=== PATIENT | male | born 2000 | race Native Hawaiian/Other Pacific Islander ===

== ENCOUNTER 2025-05-14 17:39 | Emergency (ER) | payer SELFPAY ==
--- OUTSIDE RECORDS SUMMARY | 2025-05-13 17:42 | XMS_ITS | Encounter Summary ---
Author Organization [facility] Address [address] [facility] [address] [place] [phone] Phone Care Team Providers Care Marketing Teacher Name Role Phone Pcp, Unknown Primary Care Provider Unavailabl e Encounter Details Date Type Department Care Team ([facility] st Contact Info) Description 05/13/2025 5:42 PM EDT - 05/13/2025 8:01 PM EDT Emergency [facility] [address] [place] [address] Discharge Disposition: Left Without Being Seen Social History Tobacco Use Types Packs/Day Years Used Date Smoking Tobacco: Never Smokeless Tobacco: Never Alcohol Use Standard Drinks/Week Comments Never 0 (1 standard drink = 0.6 oz pur e alcohol) Education Answer Date Recorded Are you interested in more education? Not on yesica e 11/29/2022 Are you concerned about learning? Not on file 11/29/2022 No 11/29/2022 No 11/29/2022 Digital Access Answer Date Recorded No 12/27/2022 No 12/27/2022 No 12/27/2022 Reliable internet access at home? Not on file 12/27/2022 Device with a working camera? Not on file Intimate Partner Violence Answer Date R ecorded Are you denied basic needs s uch as food, clothing, or medical care? No 02/25/2024 In the past 12 months have y ou been in a relationship with a person who hurts, threatens, or tries to control you? No 02/25/2024 Are you denied basic needs s uch as food, clothing, or medical care? No 02/25/2024 In the past 12 months have y ou been in a relationship with a person who hurts, threatens, or tries to control you? No 02/25/2024 Sex and Gender Information Value Date Recorded Sex Assigned at Male 02/09/2019 8:02 PM EDT Legal Sex Male 8:46 PM EDT Gender Identity Male 02/09/2019 8:02 PM EDT Sexual Orientation Straight 12/17/2021 10 :26 PM EDT documented as of this encounter Medications at Time of Discharge cyclobenzaprine (FLEXERIL) 5 MG tablet 5-10 mg every 6-8 hours as needed for skeletal muscle relaxation/mus zeina spasm 20 tablet 02/25/2024 documented as of this encounter Plan of Treatment Not on file documented as of this encounter Visit Diagnoses Not on filedocumented in this encounter Care Teams Marketing Teacher Relationship Specialty Start Date End Date Pcp, Unknown PCP - General 02/25/24 documented as of this encounter Additional Source Comments The information contained in this document represents components of the legal health record. It is not the complete legal health record.[facility]
--- NOTE | ~2025-05-14 | XR_ITS ---
CLINICAL HISTORY: constipation 1 view abdomen Comparison: None provided Findings: No pneumoperitoneum or pneumatosis. No abnormal calcifications. Ghto-[id number] colonic stool burden. No acute fractures. IMPRESSION: [id number] colonic stool burden. This document has been electronically signed by: Pina Heredia MD on 05/14/2025 19:15:26
--- NOTE | ~2025-05-14 | CT_ITS ---
CLINICAL HISTORY: rlq pain CT abdomen and pelvis with contrast Comparison: None provided Findings: LIMITED CHEST: Lung bases are clear. LIVER: No focal liver lesion. Mild diffuse hypoattenuation suggesting steatosis. BILIARY: No gallbladder wall thickening, radiopaque stone, or ductal dilatation. PANCREAS: No mass or ductal dilatation. SPLEEN: No splenomegaly. KIDNEYS: No hydronephrosis or radiopaque stone. Small hypoattenuating lesions, too small to characterize however may represent cysts. ADRENALS: No nodule. VASCULAR: No aneurysm. RETROPERITONEUM: No lymphadenopathy or mass. BOWEL/MESENTERY: No evidence of obstruction. No free fluid or air. Normal appendix. ABDOMINAL WALL: No mass or significant abnormality. URINARY BLADDER: No focal wall thickening. PELVIC NODES: No pelvic lymphadenopathy. PELVIC ORGANS: Normal for age. BONES: No acute fracture. OTHER: Negative. IMPRESSION: No acute findings. Normal appendix. This document has been electronically signed by: Pina Heredia MD on 05/14/2025 21:49:40
[2025-05-14 17:45] VITALS: BP 130/86; PULSE 86; RESP 18; TEMP 36.3; O2SAT 99; BMI 28.0
--- NOTE | 2025-05-14 17:45 | ED.ABDPAIN ---
HPI - Abdominal Pain General Chief Complaint: Abdominal Pain Stated Complaint: lower abd pain Time Seen by Provider: 05/14/25 20:01 Source: patient Mode of arrival: ambulatory Limitations: no limitations History of Present Illness ED Provider: DR. Mackay HPI narrative: 24-year-old male otherwise healthy came in for evaluation of right lower quadrant pain that is started 2 days ago while having sexual intercourse with his pain started very severe confined to the right lower quadrant area felt like a muscle spasm that stop the patient from his activity, patient since then has been constant and localized to the right lower quadrant area, no nausea, no vomiting, no anorexia, no testicular pain, no flank pain, no hematuria, no dysuria, no frequency urination, no urethral discharge, no history of STDs, no risk for STD. Patient has been having constipation for the last 2 days, +passing flatus, no no history of intra-abdominal surgery. Related Data Previous Rx's ?Medication ?Instructions ?Recorded methocarbamol 500 mg tablet 1,000 mg (2 x 500 mg) PO QID #20 05/14/25 tabs Allergies Allergy/AdvReac Type Severity Reaction Status Date / Time No Known Allergies Allergy Verified 05/14/25 17:48 Review of Systems Review of Systems All other systems are reviewed and are negative Constitutional: Reports as per HPI and Reports no additional constitutional complaints Eyes: Reports as per HPI and Reports no additional eye complaints Reports system reviewed and no additional complaints, except as documented Cardiovascular: Reports as per HPI and Reports no additional cardiovascular complaints Respiratory: Reports as per HPI and Reports no additional respiratory complaints Gastrointestinal: Reports as per HPI and Reports no additional gastrointestinal complaints Genitourinary: Reports no additional female genitourinary complaints Musculoskeletal: Reports no additional musculoskeletal complaints Skin/Breast: Reports system reviewed and no additional complaints, except as docu Psychiatric: Reports no additional psychiatric complaints Endocrine: Reports no additional endocrine complaints Hematologic/Lymphatic: Reports no additional hematologic/lymphatic complaints Allergic/Immunologic: Reports no additional allergic/immunologic complaints Reports system reviewed and no additional complaints, except as documented and Reports Abnormal speech present [facility] Social History Social History Smoked in Last 30 Days: No Use of substances other than those prescribed or required for medical reasons: No Advance Directives: No Advance Directives Information Provided: Yes Do you have a plan to hurt others: No Plan Physical Exam ED Vital Signs: Vital Signs - 24 hr 05/14/25 17:45 05/14/25 18:26 05/14/25 20:20 Temperature 97.3 F 98.6 F 98.4 F Pulse Rate 86 90 88 Respiratory Rate 18 16 18 Blood Pressure 130/86 115/74 120/69 Pulse Oximetry 99 97 98 Oxygen Delivery Method Room Air Nasal Cannula Room Air BMI result Body Mass Index 28.0 Vital signs have been reviewed and appear to be correct. Blood pressure elevated. Heart rate normal. Respiratory rate normal. Temperature normal. Oxygen saturation normal. Appearance: Alert. Oriented X3. No acute distress. Head: Normal external exam. Normocephalic. Atraumatic. No [place] signs noted. No raccoon eyes noted Eyes: PERRLA. EOMI. Conjunctiva and sclera normal. Eyelids normal. ENT: TM's Normal. Pharynx normal. Uvula midline. Moist mucous membranes. No trismus noted. No drooling noted. No muffled voice noted. Neck: Normal inspection. Neck supple. FROM. No adenopathy. Thyroid Normal. No meningeal signs. No neck mass noted. CVS: Normal heart rate and rhythm. Heart sound normal. No murmurs noted. Pulses normal throughout. Respiratory: No respiratory distress. Painless inspiration. Breath sounds normal. No wheezes/rales/rhonchi noted. Chest nontender. No accessory muscle usage noted or decreased air movement noted. Abdomen: Right lower quadrant abdominal tenderness, no rebound tenderness, no guarding. Bowel sounds normal in all 4 quadrants. No distention noted. No organomegaly noted. No visible injury noted. exam: No testicular pain, no testicular swelling, +cremasteric reflex bilaterally, no testicular redness or hotness. Back: No CVA tenderness. Full range of motion noted. Skin: Skin warm and dry. Normal skin color. Normal skin turgor. No rashes/lesions/lacerations noted. Extremities: No lower extremity edema. Extremities exhibit normal range of motion. Extremities nontender. Neuro: Oriented X 3. Cranial nerve exam: II-XII are grossly intact No motor deficit. No sensory deficit. Reflexes normal. Course Course Course Narrative: This is a Rapid Medical Examination (RME) performed by Nelly Ramirez PA-C in triage. Full HPI, ROS, assessment and treatment plan per primary provider in the Main ED. Hx: 24 yo M here for eval of acute onset sharp RLQ pain x2 days. admits to constipation - small BM this morning, cannot recall BM before that. no N/V/D. normal appetite. no hx abd surgery. Plan: labs, UA Reevaluation(s) Reevaluation #1: 24-year-old male came in with right lower quadrant abdominal pain x2 days, no leukocytosis, UA showed no hematuria, chemistry within normal limits. Patient is awaiting for CT abdomen and pelvis with IV contrast to rule out acute appendicitis. Case signed out to Dr. Agudelo at the end of my shift. Time: 20:50 Medical Decision Making Differential Diagnosis Differential Diagnoses: The differential diagnosis associated with the presentation includes (Pancreatitis, colitis, diverticulitis, colitis, kidney stone, testicular torsion, acute appendicitis, UTI, electrolyte derangement, severe anemia.) Admission/Observation Consideration of admission/observation: Escalation of care including admission/observation considered Lab Data MDM Lab Attestation statement: I reviewed the patient's lab results. 05/14/25 18:23 05/14/25 18:23 Labs: Lab Results 05/14/25 05/14/25 Range/Units 18:23 18:32 WBC 9.8 (4.8-10.8) X10*3/uL RBC 5.29 (4.60-5.80) X10*6/uL Hgb 14.9 (14.0-18.0) g/dl Hct 44.0 (42.0-52.0) % MCV 83.2 (80.0-98.0) fL MCH 28.2 (27.0-33.0) pg MCHC 33.9 (31.0-36.0) g/dl RDW 12.7 (11.0-16.0) % Plt Count 367 (160-400) X10*3/uL MPV 10.4 (9.4-12.4) fL Immature Gran % (Auto) 0.3 (0.0-0.4) % Neut % (Auto) 58.1 (45-73) % Lymph % (Auto) 32.4 (20-40) % [place] % (Auto) 6.2 (2-11) % Eos % (Auto) 2.4 (0-4) % Baso % (Auto) 0.6 (0-2) % Lymph # (Auto) 3.2 (1.2-4.9) X10*3/uL [place] # (Auto) 0.6 (0.1-1.2) X10*3/uL Eos # (Auto) 0.2 (0.0-0.4) X10*3/uL Baso # (Auto) 0.1 (0.0-0.2) X10*3/uL Abs Immat Gran (auto) 0.03 (0.00-0.03) X10*3/uL Absolute Neuts (auto) 5.7 (2.0-8.3) x10*3/uL Absolute Nucleated RBC 0.000 (0.0-0.012) X10*3/uL Nucleated RBC % (auto) 0.0 (0.0-0.2) /100WBC Sodium 140 (135-145) mmol/L Potassium 3.3 (3.3-5.1) mmol/L Chloride 104 (96-108) mmol/L Carbon Dioxide 29 (22-29) mmol/L Anion Gap 10 L (12-20) BUN 12 (9-16) mg/dL Creatinine 0.96 (0.5-1.4) mg/dL Estim Creat Clear Calc 128.8 Estimated GFR > 60 Random Glucose 114 (60-115) mg/dL Calcium 9.4 (8.4-10.2) mg/dL Magnesium 2.0 (1.6-2.6) mg/dL Total Bilirubin 0.4 (0.0-1.0) mg/dL AST 28 (5-37) U/L ALT 41 H (0-40) U/L Alkaline Phosphatase 94 (39-117) U/L C-Reactive Protein 0.49 (< or = 0.50) mg/dL Total Protein 7.5 (6.5-8.0) g/dL Albumin 4.6 (3.5-5.0) g/dL Lipase 31 (8-78) U/L Urine Color Yellow Urine Appearance Clear Urine pH 6.0 (5.0-9.0) Ur Specific [place] >= 1.030 H (1.005-1.025) Urine Protein Negative (Neg-Trace) mg/dL Urine Glucose (UA) Negative (Negative) mg/dL Urine Ketones Trace (Negative) mg/dL Urine Blood Negative (Negative) Urine Nitrite Negative (Negative) Ur Leukocyte Esterase Negative (Negative) Medications Administered Discontinued Medications Generic Name Dose Route Start Last Admin Trade Name Franco PRN Reason Stop Dose Admin Acetaminophen 1,000 mg in 100 mls @ 400 mls/hr 05/14/25 20:08 05/14/25 20:39 Ofirmev IV 05/14/25 20:22 Infused ONCE ONE Infusion Iohexol 100 ml 05/14/25 20:32 05/14/25 20:32 Iohexol 350 Mg/Ml 100 Ml Infus..Btl IV 05/14/25 20:33 85 ml ONCE ONE Administration Discharge Plan Discharge Clinical Impression: Abdominal pain Patient Disposition: Home, Self-Care Instructions: Acute Abdominal Pain (ED) Additional Instructions: Your blood worka nd CT scan are reassuring. There is no evidence of appendicitis today. You may have strained a muscle in your abdominal wall which can be quite tender. Use muscle relaxers and anti-inflammatory pain medications to help with the pain. Do not take muscle relaxers if you are driving as these drugs can make you drowsy. Return to the emergency department with any new or worsening symptoms including: Worsening pain, fevers greater than 100?, inability to tolerate food or drink, any new symptom that concerns you. Call 911 with any medical emergency. Prescriptions: New methocarbamol 500 mg tablet 1,000 mg PO QID Qty: 20 0RF Print Language: Yakut
[2025-05-14 18:26] VITALS: BP 115/74; PULSE 90; RESP 16; TEMP 37; O2SAT 97
[2025-05-14 18:32] LABS: MANUAL DIFF FLAG NO
[2025-05-14 18:38] LABS: Hematocrit 44.0 % (42.0-52.0); Hemoglobin 14.9 g/dl (14.0-18.0); Imm Gran Abs Auto 0.03 X10*3/uL (0.00-0.03); Imm Gran Pct Auto 0.3 % (0.0-0.4); Lymphocytes Absolute Auto 3.2 X10*3/uL (1.2-4.9); Mean Corpuscular HGB Conc 33.9 g/dl (31.0-36.0); Mean Corpuscular Hemoglobin 28.2 pg (27.0-33.0); Mean Corpuscular Volume 83.2 fL (80.0-98.0); NRBC Abs Auto 0.000 X10*3/uL (0.0-0.012); NRBC Pct Auto 0.0 /100WBC (0.0-0.2); Platelet Count 367 X10*3/uL (160-400); Red Blood Count 5.29 X10*6/uL (4.60-5.80); White Blood Count 9.8 X10*3/uL (4.8-10.8)
[2025-05-14 18:40] LABS: Appearance Urine Clear; Glucose Urine UA Negative (Negative); PH 6.0 (5.0-9.0); Specific Gravity - Urine >= 1.030 (1.005-1.025)
--- OUTSIDE RECORDS SUMMARY | 2025-05-14 18:42 | XMS_ITS | Encounter Summary ---
Author Organization [facility] Address [address] [place], [place] [phone] Phone Care Team Providers Care Custom Ski Maker Name Role Phone Addison Farfan MD Primary Care Provider Unavailab le Encounter Details Date Type Department Care Team (Late st Contact Info) Description 03/12/2017 Conversion Encounter [facility] - [address], [address] [place] [address] Destiny Pritchard MD Social History Tobacco Use Types Packs/Day Years Used Date Smoking Tobacco: Never Assessed Sex and Gender Information Value Date Recorded Sex Assigned at Not on file Legal Sex Male 5:54 PM EST Gender Identity Not on file Sexual Orientation Not on file documented as of this encounter Plan of Treatment Not on file documented as of this encounter Visit Diagnoses Not on filedocumented in this encounter Care Teams Custom Ski Maker Relationship Specialty Start Date End Date Addison Farfan MD PCP - General Pediatrics 10/04/22 02/18/24 documented as of this encounter
--- OUTSIDE RECORDS SUMMARY | 2025-05-14 18:42 | XMS_ITS | Encounter Summary ---
Author Organization [facility] Address [address] [place] [phone] Phone Care Team Providers Care Roller Pneumatic Name Role Phone Rita Jillianjigar Rose PAPER MACHINE BACK TENDER Primary C are Provider Unknown, Unknown MD Primary Care Provider Shelly barron Pcp, Unknown Primary Care Provider Unavailabl e Encounter Details Date Type Department Care Team (Late st Contact Info) Description 06/14/2019 Ancillary Orders [facility], -[place] [address] [address] Destiny Pritchard MD [address] [place] [phone] Influenza-like symptoms Social History Tobacco Use Types Packs/Day Years Used Date Smoking Tobacco: Never Smokeless Tobacco: Never Alcohol Use Standard Drinks/Week Comments Never 0 (1 standard drink = 0.6 oz pur e alcohol) Sex and Gender Information Value Date Recorded Sex Assigned at Male 02/09/2019 8:02 PM EDT Legal Sex Male 8:46 PM EDT Gender Identity Male 02/09/2019 8:02 PM EDT Sexual Orientation Straight 12/17/2021 10 :26 PM EDT documented as of this encounter Plan of Treatment Not on file documented as of this encounter Results * XR CHEST PA AND LATERAL 2 VIEWS (06/14/2019 9:22 AM EST) Anatomical Region Laterality Modality Chest Radiographic Maye ging 06/14/2019 9:24 AM EST Impressions 06/14/2019 9:26 AM EST No acute chest disease. POS - [id number] Narrative 06/14/2019 9:26 AM EST HISTORY: As above. Fever, cough, vomiting and weakness. COMPARISON: None. CHEST RADIOGRAPH FINDINGS: Views: 2. Lines/Tubes: None. Heart and Mediastinum: Normal. Lungs: Lungs are clear. Bones: Within normal limits. Soft Tissues: Within normal limits. Procedure Note Rich Guardado MD - 06/14/2019 HISTORY: As above. Fever, cough, vomiting and weakness. COMPARISON: None. CHEST RADIOGRAPH FINDINGS: Views: 2. Lines/Tubes: None. Heart and Mediastinum: Normal. Lungs: Lungs are clear. Bones: Within normal limits. Soft Tissues: Within normal limits. IMPRESSION: No acute chest disease. POS - [id number] Destiny Pritchard MD IMG XR CHEST Final Result documented in this encounter Visit Diagnoses Diagnosis Influenza-like symptoms Other general symptoms Influenza-like symptoms Other general symptoms documented in this encounter Care Teams Roller Pneumatic Relationship Specialty Start Date End Date Jillian Salinas CNP [address] [place] [address], [facility] [address] [place] [address] [email or web address] PCP - General Family Medicine 02/09/19 10/05/23 Unknown, MD Nabil PCP - General 10/06/23 02/24/24 Pcp, Unknown PCP - General 02/25/24 documented as of this encounter Additional Source Comments The information contained in this document represents components of the legal health record. It is not the complete legal health record.[facility]
--- OUTSIDE RECORDS SUMMARY | 2025-05-14 18:42 | XMS_ITS | Clinical Summary ---
Author Organization [facility] Address [address] [facility] [address] [place] [phone] Phone Care Team Providers Care Reagent Tender Name Role Phone Pcp, Unknown Primary Care Provider Unavailabl e Allergies No known active allergies Medications cyclobenzaprine (FLEXERIL) 5 MG tablet 5-10 mg every 6-8 hours as needed for skeletal muscle relaxation/mu scle spasm 20 tablet 02/25/2024 Active Active Problems No known active problems Encounters Date Type Department Care Team Description 05/13/2025 5:42 PM EDT - 05/13/2025 8:01 PM EDT Emergency [facility] [address] [place] [address] Discharge Disposition: Left Without Being Seen from Last 3 Months Immunizations Immunization Administration Dates Next Due Tdap 05/21/2021 Social History Tobacco Use Types Packs/Day Years [...] Orientation Straight 12/17/2021 10 :26 PM EDT Last Filed Vital Signs Vital Sign Reading Time Taken Comments Blood Pressure 122/83 02/25/2024 4:03 PM EDT Pulse 77 02/25/2024 4:03 PM EDT Temperature 36.1 C (97 F) 02/25/2024 4:03 PM EDT Respiratory Rate 16 02/25/2024 4:03 PM EDT Oxygen Saturation 99% 02/25/2024 4:03 PM EDT Inhaled Oxygen Concentration - - Weight 81.6 kg (180 lb) 02/25/2024 1:18 PM EDT Height 175.3 cm (5' 9 ) 02/25/2024 1:18 PM EDT Body Mass Index 26.58 02/25/2024 1:18 PM EDT Plan of Treatment Health Maintenance Due Date Last Done Comments DEPRESSION SCREENING 2012 SMOKING Hx and SMOKELESS TOBACCO SCREENING 2013 HPV VACCINES (1 - Male 3-dos e series) 11/15/2015 HEPATITIS C SCREENING 2018 HIV ONE-TIME SCREENING (18-6 5 YEARS) 2018 INFLUENZA VACCINE (#1) 2025 8, 05/20/2016 COVID-19 VACCINE (2 - 2024-2 6 season) 2025 12/22/2020 Adult Td,Tdap Booster 05/21/2031 05/21/2021 , 02/13/2012 HEPATITIS A VACCINES Aged Out No long er eligible based on patient's age to complete this topic HIB VACCINES Aged Out No longer eligi ble based on patient's age to complete this topic MENINGOCOCCAL VACCINES (ACWY) Aged Out No longer eligible based on patient's age to complete this topic MENINGOCOCCAL VACCINES (B) Aged Out N o longer eligible based on patient's age to complete this topic PNEUMOCOCCAL VACCINES (0-49 years) Aged Out No longer eligible b ased on patient's age to complete this topic Medical Devices Not on file Insurance [facility] NON NSPG PCP [employer] [facility] [employer] NON NSPG PCP S[employer] [facility] [employer] NON NSPG PCP [place] [address] [facility] [employer] NON NSPG PCP S[employer] [facility] [employer] NON NSPG PCP S[employer] [facility] NON NSPG PCP [employer] [facility] Care Teams Reagent Tender Relationship Specialty Start Date End Date Pcp, Unknown PCP - General 02/25/24 Additional Source Comments The information contained in this document represents components of the legal health record. It is not the complete legal health record.[facility]
--- OUTSIDE RECORDS SUMMARY | 2025-05-14 18:42 | XMS_ITS | Clinical Summary ---
Author Organization [facility] Address [address] [place] [phone] Phone Care Team Providers Care Farm Equipment Mechanic Apprentice Name Role Phone Unavailable Primary Care Provider Unavailabl e Allergies No known active allergies Medications No known medications Active Problems Problem Noted Date Diagnosed Date Folliculitis barbae 12/13/2020 Vision disturbance 08/13/2017 Overview (12/13/2020): Has glasses, does not wear them-- just went to eye dr today, given new Rx. Per his Hx he is farsighted Assessment & Plan (12/13/2020 2:56 PM EDT): Has glasses, does not wear them-- just went to eye dr today, given new Rx. Per his Hx he is farsighted Immunizations Immunization Administration Dates Next Due DTaP 01/30/2005, 2,03/05/2001,01/20 H1N1 05/20/2009 HPV, Quadrivalent 02/17/2013,09/25/2012,02/13/20 12 Hep A, ped/adol 02/17/2013,02/22/2011 Hep B, ped/adol 04/07/2002,06/01/2001,01/20/2001 Hib (PRP-T) 04/07/2002,06/01/2001,01/20/2001 IPV 01/30/2005, 1,03/31/2001,01/20 Influenza 05/06/2011,06/01/2010,05/20/2009 Influenza, injectable, quadr ivalent, preservative free 08/13/2017,05/20/2016,04/25/2015 Influenza, injectable, trivalent 08/13/2012 Influenza, intranasal, quadrivalent 04/21/2014 MMR 01/30/2005,11/17/2001 Meningococcal Conjugate 02/13/2012 Pneumococcal Conjugate 09/02/2001,06/01/2001, Tdap 02/13/2012 Varicella 02/17/2009,09/11/2002 Family History Relation Name Status Comments Father Alive Father's Sister Paternal Aun t: heart attack before age 50 Maternal Grandfather Alive Mat GFa ther: cholesterol or lipids, type 2 diabetes Maternal Grandmother Alive Mat GMo ther: thyroid disease Mother Alive Other 1 type 2 diabetes Other 2 Alive Other 3 Alive Other 4 Alive Other 5 Alive cholesterol or lipids, type 2 diabetes Other 6 Alive thyroid disease Other 7 heart attack be fore age 50 Paternal Grandmother Pat GMo ther: type 2 diabetes Social History Tobacco Use Types Packs/Day Years Used Date Smoking Tobacco: Never Smokeless Tobacco: Never Alcohol Use Standard Drinks/Week Comments No 0 (1 standard drink = 0.6 oz pur e alcohol) Hunger/Food Answer Date Recorded In the last 12 months, did y ou or your family ever eat less than you felt you should because there wasn't enough money for food? No 12/14/2020 Stable Housing Answer Date Recorded Are you worried that in the next 2 months you may not have stable housing? No 12/14/2020 Transportation Concerns Answer Date Rec orded In the last 12 months, have you or your family ever had to go without healthcare because you didn't have a way to get there? No 12/14/2020 Hazards in Home Answer Date Recorded Think about the place you li ve. Do you have problems with any of the following? Pests (mice or roaches), mold, no/not working smoke detectors, water leaks, no window guards. No 2020 Financing Utilities Answer Date Recorde d In the last 12 months, has t he [employer], gas, oil, or water [employer] threatened to shut off your services in your home? No 12/14/2020 Safety at Home Answer Date Recorded Are you or your family worried about feeling saf e in your home? No 12/14/2020 Outside Support Answer Date Recorded Do you feel that you need mo re support from other people or programs to help you care for yourself or your family? No 12/14/2020 Understanding Health Concerns Answer Da te Recorded Do you need help understandi ng your or your child's healthcare needs (diagnosis, medications, plan, etc.)? No 12/14/2020 Financing Health Concerns Answer Date R ecorded In the last 12 months, was t here a time when your child needed to see a doctor or get medications or supplies but could not because of cost? No 12/14/2020 Missing School or Work Answer Date Asael rded Did you or your child miss s chool or work because of a health problem that could have been avoided? No 12/14/2020 Sex and Gender Information Value Date Recorded Sex Assigned at Not on file Legal Sex Male 5:54 PM EST Gender Identity Not on file Sexual Orientation Not on file Last Filed Vital Signs Vital Sign Reading Time Taken Comments Blood Pressure 117/74 12/13/2020 2:20 PM EDT Pulse 86 12/13/2020 2:20 PM EDT Temperature 36.6 C (97.9 F) 06/17/2019 8:23 AM EST Respiratory Rate 24 06/14/2019 8:24 AM EST Oxygen Saturation 99% 06/14/2019 8:24 AM EST Inhaled Oxygen Concentration - - Weight 80.7 kg (178 lb) 12/13/2020 2:20 PM EDT Height 171.5 cm (5' 7.5 ) 12/13/2020 2:20 PM EDT Body Mass Index 27.47 12/13/2020 2:20 PM EDT Plan of Treatment Health Maintenance Due Date Last Done Comments Influenza Vaccines (#1) 2025 08/13/19, 05/20/2016, 04/25/2015, Additional history exists COVID-19 Vaccine ( season) 2025 12/22/2020 DTaP,Tdap,and Td Vaccines (7 - Td or Tdap) 05/21/2031 05/21/2021, 02/13/2012, 01/30/2005, Additional history exists Pneumococcal Vaccine Aged Out 09/02/2001, 06/01/2001, 01/20/2001 No longer eligible based on patient's age to complete this topic HIB Vaccines Completed 04/07/2002, 05/05, 01/20/2001 Hepatitis B Vaccines Completed 04/07/2002, 06/01/2001, 01/20/2001 IPV Vaccines Completed 01/30/2005, 05/05, 03/31/2001, Additional history exists MMR Vaccines Completed 01/30/2005, 11/17/2001 Varicella Vaccines Completed 02/17/2009, 09/11/2002 Meningococcal Vaccine Aged Out 02/13/2012 No seb charlie eligible based on patient's age to complete this topic HPV Vaccines Completed 02/17/2013, 09/05, 02/13/2012 Hepatitis A Vaccines Completed 02/17/2013, 02/23/20 11 Men B Vaccine Aged Out No longer elig ible based on patient's age to complete this topic
[2025-05-14 18:50] LABS: Alanine Aminotransferase 41 U/L (0-40); Albumin Level 4.6 g/dL (3.5-5.0); Alkaline Phosphatase 94 U/L (39-117); Anion Gap 10 (12-20); Aspartate Amino Transferase 28 U/L (5-37); Blood Urea Nitrogen 12 mg/dL (9-16); Calcium 9.4 mg/dL (8.4-10.2); Carbon Dioxide 29 mmol/L (22-29); Chloride 104 mmol/L (96-108); Creatinine Clr Calc Pharmacy 128.8; Estimated Glomerular Filt Rate > 60; Lipase 31 U/L (8-78); Magnesium 2.0 mg/dL (1.6-2.6); Potassium 3.3 mmol/L (3.3-5.1); Sodium 140 mmol/L (135-145); Total Protein 7.5 g/dL (6.5-8.0)
--- NOTE | 2025-05-14 19:10 | PC.NURSE ---
this RN assumed care of this pt @[id number]
[2025-05-14 20:20] VITALS: BP 120/69; PULSE 88; RESP 18; TEMP 36.9; O2SAT 98
[2025-05-14] MEDS: iohexoL 350 MG/ML 100 ML INFUS..BTL IV (20:32)
[2025-05-14 22:28] VITALS: BP 120/69; PULSE 88; RESP 18; TEMP 36.9; O2SAT 98
== END 2025-05-14 22:29 | disposition home or self-care (01) ==
PROVIDERS: Physician Assistant Medical; Emergency Provider Emergency Medicine
DX: R10.31 Right lower quadrant pain (principal); Z79.899 Other long term (current) drug therapy
CPT/HCPCS: 36415; 74018; 74177; 80053; 81003; 83690; 83735; 85025; 86140; 96365; 99284; 99285; J0131; Q9967

== ENCOUNTER → 2025-05-14 17:52 | Outpatient (BNV) | payer SELFPAY | PROVIDERS: Emergency Provider Emergency Medicine; Visit Provider Student in an Organized Health Care Education/Training Program | DX: R10.31 Right lower quadrant pain (principal); K59.00 Constipation, unspecified | CPT/HCPCS: 74018; 74177 ==